=== PATIENT | female | born 1950 | race Hispanic/Latino ===

== ENCOUNTER 2019-01-24 10:30 | Observation (INO) | payer SELFPAY ==
[~2019-01-24] VITALS: Ht 160 cm; Wt 69.4 kg
[2019-01-24] MEDS ORDERED: LISINOPRIL10 MG PO (10:39)
[2019-01-24] MEDS ORDERED: METFORMIN500 MG PO (10:39)
[2019-01-24] MEDS ORDERED: NOVOLIN N100 UNIT/2 SC (10:43)
[2019-01-24 11:30] LABS: URINE BILIRUBIN - DIPSTICK NEGATIVE (NEGATIVE); URINE BLOOD DIPSTICK TRACE-INTACT (NEGATIVE); URINE COLOR YELLOW; URINE GLUCOSE - DIPSTICK NEGATIVE (NEGATIVE); URINE KETONE NEGATIVE (NEGATIVE); URINE PROTEIN - DIPSTICK 30 mg/dL (NEG-TRACE); URINE SPECIFIC GRAVITY <=1.005; URINE UROBILINOGEN - DIPSTICK 0.2 E.U./dL (0.2)
[2019-01-24 11:31] LABS: IMMATURE GRANULOCYTES 0.4 % (0.0-5.0); MEAN CORPUSCULAR HGB 28.9 pG CALC (26.0-32.0); MEAN CORPUSCULAR HGB CONC 33.7 g/L CALC (32.0-36.0); PLATELET COUNT 150 thou/uL (130-400); RED BLOOD COUNT 3.42 mill/uL (4.20-5.60); RED CELL DISTRI WIDTH 12.9 % (11.5-15.5)
[2019-01-24 11:35] LABS: URINE LEUK ESTERASE SMALL (NEGATIVE); URINE NITRITE - DIPSTICK POSITIVE (Negative)
[2019-01-24 11:42] LABS: BILIRUBIN, TOTAL 0.3 mg/dL (0.0-1.4); CREATININE 1.4 mg/dL (0.5-1.0); TOTAL PROTEIN 7.5 g/dL (6.3-8.2)
[2019-01-24 11:48] LABS: HEMATOCRIT 29.4 % (37.0-47.0); HEMOGLOBIN 9.9 g/dl (12.0-16.0); MANUAL DIFFERENTIAL YES
[2019-01-24 11:49] LABS: BAND 18 % (0-8)
[2019-01-24 11:51] LABS: URINE BACTERIA MANY hpf; URINE SQUAMOUS EPITHELIAL CELL FEW EPI/hpf (0-FEW)
[2019-01-24 14:07] VITALS: BP 135/76
[2019-01-24 19:11] VITALS: BP 132/71
[2019-01-25 03:37] VITALS: BP 150/78
[2019-01-25 05:55] LABS: HEMATOCRIT 26.8 % (37.0-47.0); HEMOGLOBIN 8.9 g/dl (12.0-16.0); IMMATURE GRANULOCYTES 0.5 % (0.0-5.0); MEAN CELL VOLUME 86.7 fL CALC (80.0-100.0); MEAN CORPUSCULAR HGB 28.8 pG CALC (26.0-32.0); MEAN CORPUSCULAR HGB CONC 33.2 g/L CALC (32.0-36.0); PLATELET COUNT 173 thou/uL (130-400); RED BLOOD COUNT 3.09 mill/uL (4.20-5.60); RED CELL DISTRI WIDTH 13.1 % (11.5-15.5)
[2019-01-25 06:13] LABS: CREATININE 1.3 mg/dL (0.5-1.0); MAGNESIUM 1.4 mg/dL (1.6-2.3); POTASSIUM 4.5 mmol/l (3.5-5.1)
[2019-01-25 06:31] LABS: MANUAL DIFFERENTIAL YES
[2019-01-25 06:33] LABS: BAND 1 % (0-8); IMMATURE CELLS 2 %
[2019-01-25 07:54] VITALS: BP 149/72
[2019-01-25 15:00] VITALS: BP 167/75
[2019-01-25 15:43] VITALS: BP 151/64
[2019-01-25 19:30] VITALS: BP 148/69
[2019-01-26 04:00] VITALS: BP 146/79
[2019-01-26 09:14] VITALS: BP 159/67
[2019-01-26] MEDS ORDERED: CEPHALEXIN500 M1 PO (15:14)
== END 2019-01-26 16:00 | disposition home or self-care (01) | DRG 690 ==
LOC: ED 10:30 → ED-I 12:45 → ED 13:06 → MS2 13:07
PROVIDERS: Family Medicine; Nurse Practitioner Family; ADMIT Internal Medicine; ATTEND Internal Medicine
DX: N10 Acute pyelonephritis (principal); I12.9 Hypertensive chronic kidney disease with stage 1 through stage 4 chronic kidney disease, or unspecified chronic kidney disease; E11.22 Type 2 diabetes mellitus with diabetic chronic kidney disease; N18.3 Chronic kidney disease, stage 3 (moderate); E11.65 Type 2 diabetes mellitus with hyperglycemia; E83.42 Hypomagnesemia; D63.8 Anemia in other chronic diseases classified elsewhere; B96.20 Unspecified Escherichia coli [E. coli] as the cause of diseases classified elsewhere; Z79.4 Long term (current) use of insulin
CPT/HCPCS: G0378; J3475; Q9967